=== PATIENT | male | born 1950 | race African-American/Black ===

== ENCOUNTER 2019-03-29 08:12 | Inpatient (IN) | payer OTHER | END 2019-04-04 11:30 | disposition home or self-care (01) | LOC: J8W 04-03 17:21 → JER 08:12 → JERBED 11:58 → JICU 15:10 ==

== ENCOUNTER 2019-05-06 13:24 | Emergency (ER) | payer OTHER ==
[2019-05-06 13:43] VITALS: TEMP 98.8; BMI 26.4
[2019-05-06] MEDS ORDERED: SODIUM CHLORIDE 1,000 ML IV STA (14:34)
--- NOTE | 2019-05-06 14:34 | PDOC ---
History of Present Illness - General Chief Complaint: Lightheaded Stated Complaint: SYNCOPE/NEAR SYNCOPE Time Seen by Provider: 05/06/19 13:48 History Source: Patient, Spouse Exam Limitations: No Limitations - History of Present Illness Initial Comments: 05/06/19 16:22 68 YOM with h/o PE on xarelto, HTN, HLD, DM2 presenting with brief syncopal episode 1 hr [employer]. he was waiting for his car to be repaired at the [employer] and while waiting outside for about 1 hour, he subsequently felt dizzy/ lightheadedness, with brief LOC x 1 second. no trauma. witnessed by repair bakeshop cleaner, splashed some water to his face and immediate response. no incontinence or seizure activity. admits to not drinking water or eating this morning. he was admitted last month in March 2019 for syncope 2/2 PE after being off xarelto x 5 days. he admits to being compliant with xarelto today Denies fever, chills, chest pain, SOB, palpitation, dizziness, weakness, N, V, D , abdominal pain, bladder and bowel problems, leg swelling. No new changes in medications. No suspicious food intake Allergies: None Past Medical History: as documented in EMR/HPI Social history: Lives with family. No tobacco, ETOH or drug use. Surgical history: hip replacement Meds: as documented in EMR PMD: [place] 05/06/19 16:29 Past History - Past Medical History Allergies/Adverse Reactions: Allergies Allergy/AdvReac Type Severity Reaction Status Date / Time No Known Allergies Allergy Verified 05/06/19 13:43 Home Medications: Ambulatory Orders Amlodipine Besylate [Norvasc -] 10 mg PO DAILY #30 tablet 04/04/19 Losartan/Hydrochlorothiazide [Hyzaar 100-25 Tablet] 1 each PO DAILY #30 tablet 04/04/19 Metoprolol Tartrate [Lopressor -] 50 mg PO BID #60 tablet 04/04/19 Rivaroxaban [Xarelto] 15 mg PO BID 21 Days #42 tablet 04/04/19 Sitagliptin Phos/Metformin HCl [Janumet 50-1,000 mg Tablet] 1 each PO DAILY #30 tablet 04/04/19 Cancer: No Cardiac Disorders: No COPD: No Diabetes: Yes (type 2) HTN: Yes Hypercholesterolemia: Yes - Surgical History Orthopedic Surgery: Yes (HIP SURGERY- joint replacement) - Immunization History Immunization Up to Date: Yes - Suicide/Smoking/Psychosocial Hx Smoking History: Unknown if ever smoked Have you smoked in the past 12 months: No Information on smoking cessation initiated: No Hx Alcohol Use: No Drug/Substance Use Hx: No Substance Use Type: None Hx Substance Use Treatment: No Review of Systems - Review of Systems Able to Perform ROS?: Yes Comments:: 05/06/19 16:25 Review of systems Constitutional: no fevers or chills. HEENT: +dizziness. no headache. No congestion. No visual/hearing disturbances. CVS: no cp. +brief syncope. Resp: no sob. No cough. Gastrointestinal: no abdominal pain, nausea or vomiting. Genitourinary: no urinary sx, hematuria. MUSCULOSKELETAL: No joint pain and swelling. No neck or back pain. SKIN: no redness or skin changes, no discharge, no rash. No wounds. Hematologic: no easy bruising/bleeding. h/o PE NEUROLOGIC: +dizziness, +syncope. No headache. No weakness, numbness or tingling. Psych: no anxiety or depression Allergic/Immunologic: no allergies All other systems reviewed and negative, or as documented in HPI. *Physical Exam - Vital Signs Last Vital Signs Temp Pulse Resp BP Pulse Ox 98.8 F 74 16 128/72 97 05/06/19 13:37 05/06/19 13:37 05/06/19 13:37 05/06/19 13:37 05/06/19 13:37 - Physical Exam Comments: 05/06/19 16:25 General: Well appearing, awake and alert, NAD. HEENT: NCAT, PERRL, EOMI, clear conjunctiva, anicteric, moist mucus membranes, clear oropharynx, no oral lesions.. Neck: neck supple, FROM Resp: CTAB, normal and even respirations, no respiratory distress CVS: RRR, no murmurs, 2+ peripheral pulses throughout, no peripheral edema Abdomen: soft, NTND, no peritoneal signs. Back: nontender, normal inspection and ROM MSK: no edema, MELTON x4, ROM intact. No clubbing or cyanosis. normal bulk and tone. Neuro: alert, no focal neuro deficits. Psych: calm and cooperative Skin: warm and well perfused, cap refill <2 sec, normal color ED Treatment Course - LABORATORY CBC & Chemistry Diagram: 05/06/19 15:11 05/06/19 15:57 - ADDITIONAL ORDERS Additional order review: Laboratory Results 05/06/19 05/06/19 05/06/19 15:57 15:11 15:11 PT with INR 24.00 H INR 2.02 H Sodium 138 Cancelled Potassium 4.4 Cancelled Chloride 104 Cancelled Carbon Dioxide 27 Cancelled Anion Gap 8 Cancelled BUN 16.2 Cancelled Creatinine 1.5 H Cancelled Est GFR (CKD-EPI)AfAm 55.04 Cancelled Est GFR (CKD-EPI)NonAf 47.49 Cancelled Random Glucose 108 H Cancelled Calcium 8.4 L Cancelled Total Bilirubin 0.6 Cancelled AST 13 L Cancelled ALT 22 Cancelled Alkaline Phosphatase 81 Cancelled Creatine Kinase 84 Troponin I < 0.02 Total Protein 6.8 Cancelled Albumin 3.7 Cancelled 05/06/19 15:11 PT with INR INR Sodium Cancelled Potassium Cancelled Chloride Cancelled Carbon Dioxide Cancelled Anion Gap Cancelled BUN Cancelled Creatinine Cancelled Est GFR (CKD-EPI)AfAm Cancelled Est GFR (CKD-EPI)NonAf Cancelled Random Glucose Cancelled Calcium Cancelled Total Bilirubin Cancelled AST Cancelled ALT Cancelled Alkaline Phosphatase Cancelled Creatine Kinase Cancelled Troponin I Cancelled Total Protein Cancelled Albumin Cancelled 05/06/19 15:11 RBC 4.09 MCV 94.5 MCHC 34.1 RDW 14.1 MPV 8.1 Neutrophils % 75.3 Lymphocytes % 17.2 D Monocytes % 6.2 Eosinophils % 0.8 Basophils % 0.5 - Medications Given in the ED: ED Medications Discontinued Medications Generic Name Dose Route Start Last Admin Trade Name Freq PRN Reason Stop Dose Admin Sodium Chloride 1,000 mls @ 1,000 mls/hr 05/06/19 14:34 05/06/19 15:13 Normal Saline - IV 05/06/19 15:33 1,000 mls/hr ASDIR STA Administration Medical Decision Making - Medical Decision Making 05/06/19 16:26 See HPI for details. Prior notes reviewed, including admissions, discharges and consultations. Vital signs reviewed, wnl. DDX syncope, dehydration, electrolyte/metabolic derangements, vasovagal reaction , heat exhaustion, arrhythmia, ACS, already on Xarelto for PE, so doubt PE without SOB/CP or VS derangements no head trauma or sz or neuro deficits, so doubt intra cranial process. defer imaging at this time. laboratory results and imaging reviewed, basic labs and lytes wnl, LFTs normal; Coags with INR 2, compliant with xarelto Cardiac panel_wnl, including troponin and ck level, no e/o rhabdo or muscle aches. doubt cardiac with neg trops. EKG normal sinus rhythm at 62 bpm, no interval abnormalities, Wide QRS, RBBB, ST and T wave segments and morphology normal. Nonspecific T wave abnormalities - similar to prior. ED course -interventions: IVF hydration tolerating PO intake, feels much better. ambulatory. Pt to be discharged in stable condition. Patient and family made aware of clinical impression, treatment recommendations and disposition plan, return precautions discussed (including but not limited to new or persistent/worsening symptoms, pain, fevers, or signs of infection, chest pain, respiratory distress , inability to tolerate oral intake, dehydration, syncope, or neurologic changes ). Follow up with PMD and/or specialist as recommended, follow up information provided, take medications as instructed for duration of time. continue with supportive care, avoid triggers and precipitants. All questions answered to patient's satisfaction and expressed understanding and comfort with this. At the time of discharge, the patient is alert, clinically improved, tolerating po and verbalizes understanding of instructions, satisfied with the care received and felt comfortable with the plan. Patient does not suffer from an acute life- threatening medical condition at this time and is safe for outpatient follow- up. 05/06/19 16:29 05/06/19 16:31 05/06/19 17:09 *DC/Admit/Observation/Transfer Diagnosis at time of Disposition: Elevated serum creatinine, Dehydration, Heat exhaustion - Discharge Dispostion Disposition: HOME Condition at time of disposition: Improved Decision to Admit order: No - Referrals Referrals: Jessenia Torres MD [Primary Care Provider] - - Patient Instructions Printed Discharge Instructions: Creatinine, DI for Heat Exhaustion and Heat Stroke, DI for Dehydration -- Adult Additional Instructions: 1) Please follow-up with your primary care doctor in the next 1-2 days. Please call tomorrow for for any urgent issues. 2) You were given a copy of the tests performed today. Please bring the results with you and review them with your primary care doctor. Your laboratory / results were normal, except for elevated Kidney function with Creatinine 1.5 which could be from dehydration your cardiac enzyme was normal. so unlikely your heart. 3) If you have any worsening of symptoms or any other concerns please return to the ED immediately. Return if worsening symptoms including fevers, headache, vomiting, visual or hearing disturbances, abdominal pain, chest pain, shortness of breath, syncope, dehydration, inability to take things by mouth/vomiting, altered mental status, or worsening concerning symptoms. Stay well hydrated and rest adequately. Make an appointment. If you cannot follow-up with your primary care doctor please return to the ED stay out of the heat during the heat waves. continue to take your medications including your xarelto for you blood clot management. - Post Discharge Activity
[2019-05-06 15:16] LABS: BASO % 0.5 % (0-2.0); EOS % 0.8 % (0-4.5); HEMATOCRIT 38.6 % (35.4-49); HEMOGLOBIN 13.2 GM/dL (11.7-16.9); LYMPH % 17.2 % (8-40); MCH 32.3 pg (25.7-33.7); MCHC 34.1 g/dl (32.0-35.9); MEAN CELL VOLUME 94.5 fl (80-96); MEAN PLT VOLUME 8.1 fl (7.5-11.1); MONO % 6.2 % (3.8-10.2); NEUT % 75.3 % (42.8-82.8); PLATELET COUNT 257 K/MM3 (134-434); RBC 4.09 M/mm3 (4.00-5.60); RDW 14.1 % (11.9-15.9); WHITE BLOOD COUNT 7.5 K/mm3 (4.0-10.0)
[2019-05-06 15:30] LABS: INR 2.02 (0.83-1.09)
[2019-05-06 17:02] LABS: ALBUMIN 3.7 g/dl (3.4-5.0); ALK PHOS 81 U/L (45-117); ANION GAP 8 MMOL/L (8-16); BILIRUBIN,TOTAL 0.6 mg/dL (0.2-1); BLOOD UREA NITROGEN 16.2 mg/dL (7-18); CALCIUM 8.4 mg/dL (8.5-10.1); CHLORIDE 104 mmol/L (98-107); CO2 27 mmol/L (21-32); CREATININE 1.5 mg/dL (0.55-1.3); GLUCOSE,RANDOM 108 mg/dL (74-106); POTASSIUM 4.4 mmol/L (3.5-5.1); SGOT/AST 13 U/L (15-37); SGPT/ALT 22 U/L (13-61); SODIUM 138 mmol/L (136-145); TOT PROT 6.8 g/dl (6.4-8.2)
[2019-05-06 17:15] VITALS: BP 132/77; PULSE 78
--- NOTE | 2019-05-07 17:44 | EKG ---
Test Reason : Blood Pressure : / mmHG Vent. Rate : 062 BPM Atrial Rate : 062 BPM P-R Int : 190 ms QRS Dur : 134 ms QT Int : 430 ms P-R-T Axes : 039 000 020 degrees QTc Int : 436 ms NORMAL SINUS RHYTHM RIGHT BUNDLE BRANCH BLOCK ABNORMAL ECG WHEN COMPARED WITH ECG OF 29-MAR-2019 08:27, VENT. RATE HAS DECREASED BY 47 BPM RIGHT BUNDLE BRANCH BLOCK IS NOW PRESENT Confirmed by JC THAKUR, ZAIRE ([id number]) on 05/07/2019 5:44:35 PM Referred By: Confirmed By:ZAIRE GREENE MD
== END 2019-05-06 17:14 | disposition home or self-care (01) ==
LOC: JER 13:24
PROC: 3E0337Z Introduction of Electrolytic and Water Balance Substance into Peripheral Vein, Percutaneous Approach (ICD-10-PCS; principal; 2019-05-06)
DX: E86.0 Dehydration (principal); T67.5XXA Heat exhaustion, unspecified, initial encounter; R94.4 Abnormal results of kidney function studies; I10 Essential (primary) hypertension; E78.5 Hyperlipidemia, unspecified; E11.9 Type 2 diabetes mellitus without complications
CPT/HCPCS: 36415; 80053; 82550; 84484; 85025; 85610; 93005; 93010; 96360; 99283-25; J7030

== ENCOUNTER 2019-05-12 11:36 | Observation (INO) | payer OTHER | END 2019-05-15 17:10 | disposition home or self-care (01) | LOC: JER 11:36 → JERBED 16:27 → J4S 20:58 ==

== ENCOUNTER 2022-03-19 04:03 | Day surgery (SDC) | payer OTHER ==
[2022-03-18 10:45] VITALS: BMI 26.4
[2022-03-19] MEDS: CIPROFLOXACIN 0.3% EYE DROPS 5 ML BOTTLE ONE ×3 (06:50→07:00)
[2022-03-19] MEDS: KETOROLAC TROMETHAMINE 0.5% EYE DROP 1 DROP DROPS ONE ×3 (06:50→07:00)
[2022-03-19] MEDS: PHENYLEPHRINE 2.5% OPTHALMIC DROP BOTTLE ONE ×3 (06:50→07:00)
[2022-03-19] MEDS: TROPICAMIDE 1% OPHTH SOLN 15 ML BOTTLE ONE ×3 (06:50→07:00)
[2022-03-19] MEDS ORDERED: ACETAMINOPHEN 325 MG TABLET (FP) PO PRN (07:47)
[2022-03-19] MEDS ORDERED: TETRACAINE 0.5% OPHTH SOLN 2 ML BOTTLE ONE ×2 (07:57→08:22)
[2022-03-19] MEDS ORDERED: EPINEPHrine/PF 1 MG/1 ML (1:1,000) AMPULE ONE ×2 (07:58→08:21)
[2022-03-19] MEDS ORDERED: LIDOCAINE HCL/PF 1% SDV 5ML VIAL ONE ×2 (07:58→08:22)
[2022-03-19] MEDS ORDERED: TOBRAMYCIN/DEXAMETHASONE OPHTH. OINTMENT 1 TUBE ONE ×2 (07:59→08:21)
[2022-03-19] MEDS ORDERED: TROPICAMIDE 1% OPHTH SOLN 15 ML BOTTLE OP SCH (08:00)
[2022-03-19] MEDS ORDERED: PHENYLEPHRINE 2.5% OPHTH SOLN 15 ML BOTTLE OP SCH (08:00)
[2022-03-19] MEDS ORDERED: BSS (NA/CA/MG/K) BALANCED SALT SOLUTION OPHTH SOLN 15 ML BOTTLE ONE (08:00)
[2022-03-19] MEDS ORDERED: KETOROLAC TROMETHAMINE 0.5% EYE DROP 1 DROP DROPS OP SCH (08:00)
[2022-03-19] MEDS ORDERED: CIPROFLOXACIN HCL 0.3% OPHTH 2.5ML BOTTLE OP SCH (08:00)
[2022-03-19] MEDS ORDERED: POVIDONE-IODINE 5% OPHTHALMIC PREP 30 ML SOLUTION ONE (08:22)
[2022-03-19] MEDS ORDERED: MIDAZOLAM HCL 2 MG/2 ML SINGLE DOSE VIAL ONE (08:26)
[2022-03-19] MEDS ORDERED: TETRACAINE 0.5% OPHTH SOLN 2 ML BOTTLE OS ONE (08:37)
[2022-03-19] MEDS ORDERED: POVIDONE-IODINE 5% OPHTHALMIC PREP 30 ML SOLUTION OS ONE (08:39)
[2022-03-19] MEDS ORDERED: BSS (NA/CA/MG/K) BALANCED SALT SOLUTION OPHTH SOLN 15 ML BOTTLE OS ONE (08:45)
[2022-03-19] MEDS ORDERED: LIDOCAINE HCL 1% PRESERVATIVE FREE - 30ML VIAL IO ONE (08:47)
[2022-03-19] MEDS ORDERED: CHONDROITIN SU A/HYALUR SOD 1 KIT IO ONE (08:48)
[2022-03-19] MEDS ORDERED: PHENYLEPHRINE/KETOROLAC 4 ML VIAL IO ONE (08:53)
[2022-03-19] MEDS ORDERED: TOBRAMYCIN/DEXAMETHASONE OPHTH. OINTMENT 1 TUBE TP ONE ×2 (09:03→09:10)
[2022-03-19 09:27] VITALS: TEMP 98.8
[2022-03-19 10:10] VITALS: BP 158/79; PULSE 69
== END 2022-03-19 10:12 | disposition home or self-care (01) ==
LOC: JASU-SURG 04:03
PROVIDERS: ATTEND Ophthalmology
PROC: 08RK3JZ Replacement of Left Lens with Synthetic Substitute, Percutaneous Approach (ICD-10-PCS; principal; 2022-03-19 08:30)
DX: H25.12 Age-related nuclear cataract, left eye (principal)
CPT/HCPCS: 66984; V2632; 82962; J1097

== ENCOUNTER 2025-04-20 11:21 | Observation (INO) | payer OTHER ==
[2025-04-20 11:37] VITALS: BMI 26.4
[2025-04-20 12:47] LABS: ABSOLUTE IMMATURE GRANULOCYTES 0.02 x10^3/uL (0.0-0.031); BASOPHILS # 0.01 x10^3/uL (0.01-0.08); EOSINOPHIL % 1.4 % (0.8-7.0); EOSINOPHILS # 0.05 x10^3/uL (0.04-0.54); MCHC 35.6 g/dl (32.3-36.5); MEAN CELL VOLUME 86.0 fl (79.0-92.2); MEAN PLT VOLUME 9.8 fl (9.4-12.4); MONOCYTE # 0.29 x10^3/uL (0.30-0.82); MONOCYTE % 8.3 % (5.3-12.2); RDW 11.9 % (12.2-16.6)
[2025-04-20 12:54] LABS: INR 1.63 (0.83-1.09); PROTHROMBIN TIME (PATIENT) 17.8 SEC (9.7-13.0)
[2025-04-20 12:57] LABS: ACTIVATED PTT 38.7 SECONDS (25.2-36.5)
[2025-04-20 13:14] LABS: CO2 22.0 mmol/L (21-32); GLUCOSE,RANDOM 226.0 mg/dL (74-106)
[2025-04-20 13:17] LABS: CREATININE 1.5 mg/dL (0.55-1.3); SGOT/AST 88.0 U/L (15-37); SGPT/ALT 65.0 U/L (13-61); TOT PROT 6.3 g/dl (6.4-8.2)
[2025-04-20 13:19] LABS: ALK PHOS 125.0 U/L (45-117)
[2025-04-20 13:34] LABS: EPI CELLS 8 /uL (0-25.1); HYALINE CASTS 1 /uL (0-3.1); URINE APPEARANCE CLEAR; URINE BACTERIA 9 /uL (0-1359); URINE BILIRUBIN NEGATIVE (NEGATIVE); URINE COLOR YELLOW; URINE GLUCOSE (UA) NEGATIVE (NEGATIVE); URINE KETONE NEGATIVE (NEGATIVE); URINE LEUK ESTERASE NEGATIVE (NEGATIVE); URINE NITRITE NEGATIVE (NEGATIVE); URINE PROTEIN NEGATIVE (NEGATIVE); URINE RBC 395 /uL (0-23.9); URINE UROBILINOGEN 2.0 mg/dL (0.2-1.0); URINE WBC 9 /uL (0-25.8)
[2025-04-20] MEDS: SODIUM CHLORIDE 500 ML IV STA (13:51)
[2025-04-20 14:20] LABS: CO2 22.0 mmol/L (21-32); GLUCOSE,RANDOM 227.0 mg/dL (74-106)
[2025-04-20 14:24] LABS: CREATININE 1.4 mg/dL (0.55-1.3)
[2025-04-20] MEDS: SODIUM CHLORIDE 0.9% 500 ML INFUS.BAG IV ONE (16:18)
[2025-04-20 16:40] LABS: HCV DIAGNOSTIC IN-HOUSE W/RFLX NON-REACTIVE (NONREACTIVE)
[2025-04-20 16:41] LABS: HIV INTERPRETATION NEGATIVE (NEGATIVE)
[2025-04-20 19:39] VITALS: RESP 18
[2025-04-20] MEDS: LACTATED RINGERS SOLUTION 1,000 ML/1,000 ML INFUS.BAG IV SCH (20:04)
[2025-04-20] MEDS: MAGNESIUM OXIDE 400 MG TABLET (FP) PO ONE (20:05)
[2025-04-20] MEDS: INSULIN ASPART SLIDING SCALE (NOVOLOG) 1 VIAL SQ SCH (21:30)
[2025-04-20] MEDS: METOPROLOL TARTRATE 25 MG TABLET (FP) PO SCH (21:30)
[2025-04-20] MEDS: ACETAMINOPHEN 500 MG TABLET (FP) PO ONE (22:48)
[2025-04-21 08:11] LABS: MCHC 35.6 g/dl (32.3-36.5); MEAN CELL VOLUME 84.8 fl (79.0-92.2); MEAN PLT VOLUME 10.1 fl (9.4-12.4); RDW 11.6 % (12.2-16.6)
[2025-04-21 08:21] LABS: CO2 25.0 mmol/L (21-32); GLUCOSE,RANDOM 145.0 mg/dL (74-106)
[2025-04-21 08:24] LABS: CREATININE 1.0 mg/dL (0.55-1.3); SGOT/AST 58.0 U/L (15-37); SGPT/ALT 66.0 U/L (13-61)
[2025-04-21 08:25] LABS: TOT PROT 6.3 g/dl (6.4-8.2)
[2025-04-21 08:27] LABS: ALK PHOS 137.0 U/L (45-117)
[2025-04-21] MEDS: PATIENT'S OWN MEDICATION (NON-FORMULARY) (Relugolix [Orgovyx] 120 MG Tablet) PO SCH (09:24)
[2025-04-21] MEDS: MAGNESIUM SULFATE IN WATER 2 GM/50 ML IVPB IVPB ONE (09:24)
[2025-04-21] MEDS: ABIRATERONE ACETATE 250 MG PO SCH (09:25)
[2025-04-21 09:26] LABS: IRON SERUM 76.0 ug/dL (50-175)
[2025-04-21] MEDS: LOSARTAN POTASSIUM 50 MG TABLET PO SCH (09:26)
[2025-04-21] MEDS: POTASSIUM CHLORIDE ORAL LIQUID 20 MEQ/15 ML PO ONE (09:32)
[2025-04-21] MEDS: SODIUM CHLORIDE 1,000 ML IV SCH (13:38)
[2025-04-22 07:23] LABS: ABSOLUTE IMMATURE GRANULOCYTES 0.01 x10^3/uL (0.0-0.031); BASOPHILS # 0.01 x10^3/uL (0.01-0.08); EOSINOPHIL % 1.0 % (0.8-7.0); EOSINOPHILS # 0.03 x10^3/uL (0.04-0.54); MCHC 34.9 g/dl (32.3-36.5); MEAN CELL VOLUME 85.5 fl (79.0-92.2); MEAN PLT VOLUME 9.8 fl (9.4-12.4); MONOCYTE # 0.36 x10^3/uL (0.30-0.82); MONOCYTE % 11.5 % (5.3-12.2); RDW 11.8 % (12.2-16.6)
[2025-04-22 08:00] LABS: CO2 25.0 mmol/L (21-32); GLUCOSE,RANDOM 149.0 mg/dL (74-106)
[2025-04-22 08:03] LABS: CREATININE 0.9 mg/dL (0.55-1.3); SGPT/ALT 62.0 U/L (13-61)
[2025-04-22 08:04] LABS: SGOT/AST 54.0 U/L (15-37)
[2025-04-22 08:05] LABS: TOT PROT 6.0 g/dl (6.4-8.2)
[2025-04-22 08:06] LABS: ALK PHOS 132.0 U/L (45-117)
[2025-04-22] MEDS: SODIUM CHLORIDE 1,000 ML IV SCH (09:49)
[2025-04-22] MEDS: METOPROLOL TARTRATE 25 MG TABLET (FP) PO SCH (09:50)
[2025-04-22] MEDS: MAGNESIUM 1GM/D5W - 1 GM/100 ML IVPB IVPB ONE (09:51)
[2025-04-22] MEDS: RIVAROXABAN 20 MG TABLET PO SCH (12:52)
[2025-04-22 16:45] LABS: CO2 25.0 mmol/L (21-32); GLUCOSE,RANDOM 152.0 mg/dL (74-106)
[2025-04-22 16:48] LABS: CREATININE 1.1 mg/dL (0.55-1.3)
[2025-04-22] MEDS: hydrALAZINE HCL 25 MG TABLET (FP) PO SCH (22:01)
[2025-04-23 06:38] VITALS: TEMP 97.5
[2025-04-23 08:53] LABS: GLUCOSE,RANDOM 153.0 mg/dL (74-106)
[2025-04-23 08:54] LABS: CO2 22.0 mmol/L (21-32)
[2025-04-23 08:56] LABS: CREATININE 0.9 mg/dL (0.55-1.3); SGPT/ALT 58.0 U/L (13-61)
[2025-04-23 08:57] LABS: SGOT/AST 43.0 U/L (15-37)
[2025-04-23 08:58] LABS: TOT PROT 6.0 g/dl (6.4-8.2)
[2025-04-23 08:59] LABS: ALK PHOS 134.0 U/L (45-117)
[2025-04-23 10:30] VITALS: BP 113/68; PULSE 87
== END 2025-04-23 13:44 | disposition home or self-care (01) ==
LOC: JER 11:21 → JERBED 15:58 → J4W 19:27
PROVIDERS: ADMIT Student in an Organized Health Care Education/Training Program; ATTEND Student in an Organized Health Care Education/Training Program
PROC: 3E013VG Introduction of Insulin into Subcutaneous Tissue, Percutaneous Approach (ICD-10-PCS; principal; 2025-04-20)
PROC: 3E0337Z Introduction of Electrolytic and Water Balance Substance into Peripheral Vein, Percutaneous Approach (ICD-10-PCS; 2025-04-20)
PROC: 3E033GC Introduction of Other Therapeutic Substance into Peripheral Vein, Percutaneous Approach (ICD-10-PCS; 2025-04-20)
DX: I95.1 Orthostatic hypotension (principal); E87.1 Hypo-osmolality and hyponatremia; E11.9 Type 2 diabetes mellitus without complications; E78.5 Hyperlipidemia, unspecified; D68.59 Other primary thrombophilia; Z79.01 Long term (current) use of anticoagulants; C61 Malignant neoplasm of prostate; Z86.711 Personal history of pulmonary embolism
CPT/HCPCS: 36415; 70450-TC; 71045-TC-FY; 80048; 80053; 81003; 82570; 82607; 82728; 82962; 83036; 83540; 83550; 83605; 83735; 83935; 84100; 84300; 84436; 84443; 84484; 85025; 85027; 85610; 85730; 86803; 86850; 86900; 86901; 87086; 87389; 93005; 93010; 93306-TC; 96361; 96365; 96366; 96372; 97116-GP; 97161-GP; 99285-25; G0378